=== PATIENT | female | born 1940 | race Caucasian/White ===

== ENCOUNTER → 2017-02-14 | Outpatient (CLI) | payer OTHER ==
[2017-02-14 13:46] LABS: FREE T4 (FREE THYROXINE) 0.1 ng/dL (0.93-1.71)
== END ==
LOC: LAB 11:58
PROVIDERS: ATTEND Nurse Practitioner
DX: E03.9 Hypothyroidism, unspecified (principal)
CPT/HCPCS: 84439; 84443

== ENCOUNTER → 2017-03-17 | Outpatient (CLI) | payer OTHER | LOC: MMPC 10:00 | PROVIDERS: ATTEND Podiatrist Foot & Ankle Surgery | DX: M79.674 Pain in right toe(s) (principal); I73.9 Peripheral vascular disease, unspecified; B35.1 Tinea unguium; L60.1 Onycholysis; L60.3 Nail dystrophy | CPT/HCPCS: 11720 ×2; 99201; G0463 ==